=== PATIENT | male | born 1955 | race Caucasian/White ===

== ENCOUNTER → 2018-06-23 | Outpatient (CLI) | payer BC, OTHER | END | disposition home or self-care (01) | LOC: CARD 09:42 | PROVIDERS: ATTEND Family Medicine | DX: E78.5 Hyperlipidemia, unspecified (principal) | CPT/HCPCS: 93017 ==

== ENCOUNTER 2020-06-28 15:10 | Inpatient (IN) | payer OTHER ==
[~2020-06-28] VITALS: Ht 182.9 cm; Wt 97.5 kg
[2020-06-28 19:08] VITALS: BP 146/77
[2020-06-28 21:14] VITALS: BP 127/75
[2020-06-28] MEDS ORDERED: PHARMACY INSTRUCTION MC PRN (21:30)
[2020-06-28] MEDS ORDERED: LABETALOL 5MG/ML, 20ML IVPush PRN (21:30)
[2020-06-28] MEDS ORDERED: ACETAMINOPHEN 325 MG TABLET PO PRN (21:30)
[2020-06-28] MEDS ORDERED: ONDANSETRON 2MG/ML, 2ML IVPush PRN (21:30)
[2020-06-28] MEDS ORDERED: PLEASE ENTER HEIGHT AND WEIGHT MC SCH (22:00)
[2020-06-28] MEDS: MELATONIN 5 MG TABLET PO SCH (22:13)
[2020-06-28] MEDS: ASCORBIC ACID 500 MG TABLET PO SCH (22:13)
[2020-06-28] MEDS: AZITHROMYCIN 500 MG TABLET PO SCH (22:13)
[2020-06-28] MEDS: DEXAMETHASONE 4 MG/ML, 1ML IVPush SCH (22:19)
[2020-06-28] MEDS: CEFTRIAXONE PMX 2GM/50ML 50 ML IV SCH (22:27)
[2020-06-28] MEDS: REMDESIVIR 100 MG in SODIUM CHLORIDE 0.9% 250 ML IVPB SCH (23:07)
[2020-06-28] MEDS ORDERED: EZET10TA48 PO (23:15)
[2020-06-28] MEDS ORDERED: ROSU20TA29 PO (23:15)
[2020-06-28] MEDS: ENOXAPARIN 100 MG/ML SQ SCH (23:24)
[2020-06-29 00:28] VITALS: BP 114/68
[2020-06-29 06:18] LABS: BASOPHILS % (AUTO) 1 % (0-1); EOSINOPHILS % (AUTO) 0 % (1-7); LYMPHOCYTES % (AUTO) 9 % (22-44); MEAN CORPUSCULAR HEMOGLOBIN 31.7 pg (27.5-34.5); MEAN CORPUSCULAR HGB CONC 33.9 g/dL (33.2-36.2); MEAN PLATELET VOLUME 8.6 fL (7.4-10.4); MONOCYTES % (AUTO) 5 % (2-9); NEUTROPHILS % (AUTO) 85 % (42-75); PLATELET COUNT 330 x10^3/uL (130-400); RED BLOOD COUNT 4.04 x10^6/uL (4.38-5.82); RED CELL DISTRIBUTION WIDTH 13.3 % (9.4-14.8)
[2020-06-29 06:19] LABS: MD NO
[2020-06-29 06:32] LABS: CHLORIDE 112 mmol/L (98-107)
[2020-06-29 06:40] LABS: ALANINE AMINOTRANSFERASE 53 U/L (12-78); ALBUMIN 2.3 g/dL (3.4-5.0); ALKALINE PHOSPHATASE 58 U/L (45-117); ANION GAP 7 mmol/L (5-15); BILIRUBIN,TOTAL 0.2 mg/dL (0.2-1.0); CALCIUM 8.2 mg/dL (8.5-10.1); TOTAL PROTEIN 5.8 g/dL (6.4-8.2)
[2020-06-29] MEDS: ZINC SULFATE 220 MG CAPSULE PO SCH (08:05)
[2020-06-29] MEDS: CHOLECALCIFEROL 5,000u TAB PO SCH (08:05)
[2020-06-29] MEDS: ASCORBIC ACID 500 MG TABLET PO SCH ×2 (08:05→17:24)
[2020-06-29] MEDS: ENOXAPARIN 100 MG/ML SQ SCH ×2 (09:43→22:16)
[2020-06-29 13:34] VITALS: BP 104/67
[2020-06-29 19:44] VITALS: BP 126/77
[2020-06-29] MEDS: MELATONIN 5 MG TABLET PO SCH (22:04)
[2020-06-29] MEDS: AZITHROMYCIN 500 MG TABLET PO SCH (22:05)
[2020-06-29] MEDS: CEFTRIAXONE PMX 2GM/50ML 50 ML IV SCH (22:14)
[2020-06-29] MEDS: DEXAMETHASONE 4 MG/ML, 1ML IVPush SCH (22:14)
[2020-06-29] MEDS: REMDESIVIR 100 MG in SODIUM CHLORIDE 0.9% 250 ML IVPB SCH (23:28)
[2020-06-30 00:36] VITALS: BP 117/68
[2020-06-30 06:02] LABS: CALCIUM 8.1 mg/dL (8.5-10.1); CHLORIDE 112 mmol/L (98-107)
[2020-06-30 06:08] LABS: ALANINE AMINOTRANSFERASE 47 U/L (12-78); ALBUMIN 2.3 g/dL (3.4-5.0); ALKALINE PHOSPHATASE 64 U/L (45-117); ANION GAP 4 mmol/L (5-15); BILIRUBIN,TOTAL 0.2 mg/dL (0.2-1.0); CREATININE 0.99 mg/dL (0.7-1.3); TOTAL PROTEIN 5.8 g/dL (6.4-8.2)
[2020-06-30 06:50] VITALS: BP 120/67
[2020-06-30] MEDS: ASCORBIC ACID 500 MG TABLET PO SCH ×2 (07:55→16:36)
[2020-06-30] MEDS: CHOLECALCIFEROL 5,000u TAB PO SCH (07:55)
[2020-06-30] MEDS: ZINC SULFATE 220 MG CAPSULE PO SCH (07:55)
[2020-06-30] MEDS: ENOXAPARIN 100 MG/ML SQ SCH ×2 (10:19→21:46)
[2020-06-30 12:26] VITALS: BP 106/66
[2020-06-30 19:11] VITALS: BP 106/66
[2020-06-30] MEDS: CEFTRIAXONE PMX 2GM/50ML 50 ML IV SCH (21:45)
[2020-06-30] MEDS: MELATONIN 5 MG TABLET PO SCH (21:46)
[2020-06-30] MEDS: DEXAMETHASONE 4 MG/ML, 1ML IVPush SCH (21:46)
[2020-06-30] MEDS: AZITHROMYCIN 500 MG TABLET PO SCH (21:46)
[2020-06-30] MEDS: REMDESIVIR 100 MG in SODIUM CHLORIDE 0.9% 250 ML IVPB SCH (23:27)
[2020-07-01 00:25] VITALS: BP 120/86
[2020-07-01 07:12] VITALS: BP 109/64
[2020-07-01] MEDS: ZINC SULFATE 220 MG CAPSULE PO SCH (07:41)
[2020-07-01] MEDS: CHOLECALCIFEROL 5,000u TAB PO SCH (07:41)
[2020-07-01] MEDS: ASCORBIC ACID 500 MG TABLET PO SCH ×2 (07:41→16:36)
[2020-07-01] MEDS: ENOXAPARIN 100 MG/ML SQ SCH ×2 (10:05→22:28)
[2020-07-01 10:14] LABS: ALANINE AMINOTRANSFERASE 67 U/L (12-78); ALBUMIN 2.3 g/dL (3.4-5.0); ANION GAP 6 mmol/L (5-15); CALCIUM 8.3 mg/dL (8.5-10.1); CHLORIDE 108 mmol/L (98-107); CREATININE 0.86 mg/dL (0.7-1.3)
[2020-07-01 10:16] LABS: ALKALINE PHOSPHATASE 66 U/L (45-117); BILIRUBIN,TOTAL 0.3 mg/dL (0.2-1.0); TOTAL PROTEIN 5.9 g/dL (6.4-8.2)
[2020-07-01 12:59] VITALS: BP 126/69
[2020-07-01 18:48] VITALS: BP 134/73
[2020-07-01] MEDS: DEXAMETHASONE 4 MG/ML, 1ML IVPush SCH (22:27)
[2020-07-01] MEDS: AZITHROMYCIN 500 MG TABLET PO SCH (22:27)
[2020-07-01] MEDS: MELATONIN 5 MG TABLET PO SCH (22:27)
[2020-07-01] MEDS: CEFTRIAXONE PMX 2GM/50ML 50 ML IV SCH (22:28)
[2020-07-01] MEDS: REMDESIVIR 100 MG in SODIUM CHLORIDE 0.9% 250 ML IVPB SCH (23:21)
[2020-07-02 01:20] VITALS: BP 123/72
[2020-07-02 06:45] VITALS: BP 116/65
[2020-07-02] MEDS: ENOXAPARIN 100 MG/ML SQ SCH (09:21)
[2020-07-02] MEDS: CHOLECALCIFEROL 5,000u TAB PO SCH (09:21)
[2020-07-02] MEDS: ASCORBIC ACID 500 MG TABLET PO SCH ×2 (09:21→16:36)
[2020-07-02] MEDS: ZINC SULFATE 220 MG CAPSULE PO SCH (09:21)
[2020-07-02 13:06] VITALS: BP 118/66
[2020-07-02 21:13] VITALS: BP 133/76
[2020-07-02] MEDS: MELATONIN 5 MG TABLET PO SCH (21:13)
[2020-07-02] MEDS: AZITHROMYCIN 500 MG TABLET PO SCH (22:49)
[2020-07-02] MEDS: CEFTRIAXONE PMX 2GM/50ML 50 ML IV SCH (22:49)
[2020-07-02] MEDS: DEXAMETHASONE 4 MG/ML, 1ML IVPush SCH (22:49)
[2020-07-03 02:09] VITALS: BP 130/72
[2020-07-03 07:02] VITALS: BP 111/69
[2020-07-03] MEDS: ZINC SULFATE 220 MG CAPSULE PO SCH (08:46)
[2020-07-03] MEDS: ASCORBIC ACID 500 MG TABLET PO SCH ×2 (08:46→18:10)
[2020-07-03] MEDS: CHOLECALCIFEROL 5,000u TAB PO SCH (08:46)
[2020-07-03] MEDS: ENOXAPARIN 40 MG/0.4 ML SQ SCH (08:47)
[2020-07-03 12:40] VITALS: BP 111/66
[2020-07-03 18:58] VITALS: BP 115/65
[2020-07-03] MEDS: AZITHROMYCIN 500 MG TABLET PO SCH (22:31)
[2020-07-03] MEDS: DEXAMETHASONE 4 MG/ML, 1ML IVPush SCH (22:31)
[2020-07-03] MEDS: CEFTRIAXONE PMX 2GM/50ML 50 ML IV SCH (22:31)
[2020-07-03] MEDS: MELATONIN 5 MG TABLET PO SCH (22:31)
[2020-07-04 01:00] VITALS: BP 104/66
[2020-07-04 07:37] VITALS: BP 103/68
[2020-07-04] MEDS: CHOLECALCIFEROL 5,000u TAB PO SCH (08:24)
[2020-07-04] MEDS: ZINC SULFATE 220 MG CAPSULE PO SCH (08:24)
[2020-07-04] MEDS: ASCORBIC ACID 500 MG TABLET PO SCH (08:24)
[2020-07-04] MEDS: ENOXAPARIN 40 MG/0.4 ML SQ SCH (08:25)
[2020-07-04] MEDS ORDERED: CEFD300C37 PO (11:20)
[2020-07-04] MEDS ORDERED: ZINC220C8 PO (11:20)
[2020-07-04] MEDS ORDERED: DEXA6TAB6 PO (11:20)
[2020-07-04] MEDS ORDERED: ASCO500T9 PO (11:20)
[2020-07-04] MEDS ORDERED: AZIT500T10 PO (11:20)
[2020-07-04] MEDS ORDERED: MELA5TAB14 PO (11:20)
[2020-07-04] MEDS ORDERED: CHOL500045 PO (11:21)
[2020-07-04] MEDS ORDERED: ASPI-963 PO (11:22)
== END 2020-07-04 13:02 | disposition home or self-care (01) | DRG 177 ==
LOC: 3N 18:55
PROVIDERS: ADMIT Family Medicine; ATTEND Internal Medicine
PROC: XW033E5 Introduction of Remdesivir Anti-infective into Peripheral Vein, Percutaneous Approach, New Technology Group 5 (ICD-10-PCS; principal; 2020-06-28)
DX: U07.1 COVID-19 (principal); J12.82 Pneumonia due to coronavirus disease 2019; J96.01 Acute respiratory failure with hypoxia; E78.5 Hyperlipidemia, unspecified; Z85.820 Personal history of malignant melanoma of skin
CPT/HCPCS: 36415; 71045; 80053; 85025; G0378; J0696; J1100; J1650; J7050

== ENCOUNTER 2020-07-05 12:08 | Inpatient (IN) | payer OTHER ==
[~2020-07-05] VITALS: Ht 182.9 cm; Wt 95.0 kg
[~2020-07-05 12:08] MED LIST: ASCO500T9 PO; ASPI-963 PO; AZIT500T10 PO; CEFD300C37 PO; CHOL500045 PO; DEXA6TAB6 PO; EZET10TA48 PO; MELA5TAB14 PO; ROSU20TA29 PO; ZINC220C8 PO
--- NOTE | 2020-07-05 13:50 | NUR ---
plan iv/labs/chest tube/readmit. as
--- NOTE | 2020-07-05 13:55 | NUR ---
LATE ENTRY SUMMARY NOTE DUE TO PT CARE - PER REPORT PT DISCHARGED FROM THIS HOSPITAL ON 2-3L OF O2 YESTERDAY. PT WAS AT 83% ON INITIAL CONTACT ON 6L NC, PT CURRENTLY 90% ON 8L OXYMASK. REPORT CALLED TO MARIELLE IN IR FOR CHEST TUBE PLACEMENT. REPORT ALSO CALLED TO MICHAEL ROD. PT TO GO TO ROOM 363 AFTER CHEST TUBE. PIV PLACED AT THIS TIME. PT RESTING IN [place], MONITORING IN PLACE, NADN AT THIS TIME, PER PT NO PAIN AT THIS TIME, WCTM.
--- NOTE | 2020-07-05 13:57 | NUR ---
report to nimisha noble. as
--- NOTE | 2020-07-05 13:57 | NUR ---
ASSUMED CARE OF PT FROM MICHAEL RUSHING.
[2020-07-05 14:12] LABS: BASOPHILS % (AUTO) 0 % (0-1); EOSINOPHILS % (AUTO) 1 % (1-7); LYMPHOCYTES % (AUTO) 7 % (22-44); MEAN CORPUSCULAR HEMOGLOBIN 31.9 pg (27.5-34.5); MEAN CORPUSCULAR HGB CONC 33.3 g/dL (33.2-36.2); MEAN PLATELET VOLUME 7.7 fL (7.4-10.4); MONOCYTES % (AUTO) 4 % (2-9); NEUTROPHILS % (AUTO) 89 % (42-75); PLATELET COUNT 532 x10^3/uL (130-400); RED CELL DISTRIBUTION WIDTH 13.8 % (9.4-14.8)
[2020-07-05 14:25] LABS: ALANINE AMINOTRANSFERASE 73 U/L (12-78); ALBUMIN 2.6 g/dL (3.4-5.0); ANION GAP 6 mmol/L (5-15); CALCIUM 8.8 mg/dL (8.5-10.1); CHLORIDE 105 mmol/L (98-107); CREATININE 0.91 mg/dL (0.7-1.3)
[2020-07-05 14:27] LABS: ALKALINE PHOSPHATASE 89 U/L (45-117); BILIRUBIN,TOTAL 0.5 mg/dL (0.2-1.0)
[2020-07-05 14:45] LABS: MD SCAN
[2020-07-05] MEDS ORDERED: LIDOCAINE 1%, 10ML ONE (14:50)
[2020-07-05] MEDS ORDERED: KETOROLAC 30 MG/1 ML IV PRN (15:00)
[2020-07-05] MEDS ORDERED: ACETAMINOPHEN 325 MG TABLET PO PRN (15:00)
[2020-07-05] MEDS ORDERED: OXYcodone IR 5MG TABLET PO PRN (15:00)
[2020-07-05] MEDS ORDERED: morphine SULFATE 10 MG/ML, 1ML IVPush PRN (15:00)
[2020-07-05] MEDS ORDERED: ONDANSETRON ODT 4 MG PO PRN (15:00)
[2020-07-05] MEDS ORDERED: POLYETHYLENE GLYCOL 17 GM PACKET PO PRN (15:00)
--- NOTE | 2020-07-05 15:09 | NUR ---
IR AT BEDSIDE TO DO CHEST TUBE PLACEMENT. CONSENT SIGNED BY TWO RN'S WITH VERBAL CONSENT D/T COVID ISOLATION.
[2020-07-05] MEDS ORDERED: FENTANYL PF 100 MCG/2ML ONE (15:17)
[2020-07-05] MEDS ORDERED: FENTANYL PF 100 MCG/2ML IV ONE (15:30)
--- NOTE | 2020-07-05 15:33 | NUR ---
TASK RN: 50MCG GIVEN @ 0518 50MCG GIVEN @ 1530 PER VERBAL ORDER.
--- NOTE | 2020-07-05 15:34 | NUR ---
TASK RN: 10FR CHEST TUBE PLACED BY . PT TOLERATED PROCEDURE WELL. ADELA ZULUAGA.
[2020-07-05] MEDS ORDERED: FENTANYL PF 100 MCG/2ML IVPush ONE (16:00)
[2020-07-05 16:52] VITALS: BP 107/71
[2020-07-05] MEDS: ASCORBIC ACID 500 MG TABLET PO SCH (17:30)
[2020-07-05 19:19] VITALS: BP 120/62
[2020-07-05] MEDS: ATORVASTATIN 80 MG TABLET PO SCH (20:05)
[2020-07-05] MEDS: EZETIMIBE 10 MG TABLET PO SCH (20:05)
[2020-07-05] MEDS ORDERED: TRAZODONE 50MG TABLET PO PRN (21:00)
[2020-07-06 00:41] VITALS: BP 132/83
[2020-07-06 05:18] LABS: BASOPHILS % (AUTO) 0 % (0-1); EOSINOPHILS % (AUTO) 0 % (1-7); LYMPHOCYTES % (AUTO) 11 % (22-44); MEAN CORPUSCULAR HEMOGLOBIN 32.8 pg (27.5-34.5); MEAN CORPUSCULAR HGB CONC 34.5 g/dL (33.2-36.2); MEAN PLATELET VOLUME 7.9 fL (7.4-10.4); MONOCYTES % (AUTO) 9 % (2-9); NEUTROPHILS % (AUTO) 80 % (42-75); PLATELET COUNT 486 x10^3/uL (130-400); RED BLOOD COUNT 4.17 x10^6/uL (4.38-5.82); RED CELL DISTRIBUTION WIDTH 13.7 % (9.4-14.8)
[2020-07-06 05:32] LABS: ALBUMIN 2.4 g/dL (3.4-5.0); ANION GAP 4 mmol/L (5-15); CALCIUM 8.9 mg/dL (8.5-10.1); CHLORIDE 104 mmol/L (98-107)
[2020-07-06 05:37] LABS: ALANINE AMINOTRANSFERASE 54 U/L (12-78); ALKALINE PHOSPHATASE 75 U/L (45-117); BILIRUBIN,TOTAL 0.6 mg/dL (0.2-1.0); CREATININE 0.84 mg/dL (0.7-1.3); TOTAL PROTEIN 6.4 g/dL (6.4-8.2)
[2020-07-06 06:13] LABS: MD SCAN
[2020-07-06 07:56] VITALS: BP 135/84
[2020-07-06] MEDS: ASCORBIC ACID 500 MG TABLET PO SCH ×2 (09:33→18:09)
[2020-07-06] MEDS: ZINC SULFATE 220 MG CAPSULE PO SCH (09:33)
[2020-07-06] MEDS: SENNA/DOCUSATE TABLET PO SCH (09:34)
[2020-07-06] MEDS: DEXAMETHASONE 1 MG TABLET PO SCH (09:34)
[2020-07-06] MEDS: CHOLECALCIFEROL 5,000u TAB PO SCH (09:34)
[2020-07-06] MEDS: ASPIRIN 81 MG TABLET EC PO SCH (09:34)
[2020-07-06] MEDS: ENOXAPARIN 40 MG/0.4 ML SQ SCH (09:35)
[2020-07-06 12:15] VITALS: BP 124/76
[2020-07-06] MEDS: GUAIFENESIN ER 600 MG TABLET PO SCH (18:09)
[2020-07-06 18:30] VITALS: BP 131/80
[2020-07-06] MEDS: EZETIMIBE 10 MG TABLET PO SCH (20:34)
[2020-07-06] MEDS: ATORVASTATIN 80 MG TABLET PO SCH (20:34)
[2020-07-06] MEDS: MELATONIN 5 MG TABLET PO PRN (20:36)
[2020-07-07 00:21] VITALS: BP 120/77
[2020-07-07] MEDS: GUAIFENESIN ER 600 MG TABLET PO SCH ×3 (06:35→22:28)
[2020-07-07 07:54] VITALS: BP 107/69
[2020-07-07] MEDS: SENNA/DOCUSATE TABLET PO SCH (09:00)
[2020-07-07] MEDS: ENOXAPARIN 40 MG/0.4 ML SQ SCH (09:00)
[2020-07-07] MEDS: ZINC SULFATE 220 MG CAPSULE PO SCH (09:11)
[2020-07-07] MEDS: ASPIRIN 81 MG TABLET EC PO SCH (09:11)
[2020-07-07] MEDS: CHOLECALCIFEROL 5,000u TAB PO SCH (09:12)
[2020-07-07] MEDS: ASCORBIC ACID 500 MG TABLET PO SCH ×2 (09:12→18:16)
[2020-07-07] MEDS: DEXAMETHASONE 1 MG TABLET PO SCH (09:12)
[2020-07-07 13:15] VITALS: BP 110/76
[2020-07-07 19:38] VITALS: BP 112/69
[2020-07-07] MEDS: ATORVASTATIN 80 MG TABLET PO SCH (22:27)
[2020-07-07] MEDS: MELATONIN 5 MG TABLET PO PRN (22:28)
[2020-07-07] MEDS: EZETIMIBE 10 MG TABLET PO SCH (22:28)
[2020-07-08 00:47] VITALS: BP 118/74
[2020-07-08 07:48] VITALS: BP 119/74
[2020-07-08] MEDS: DEXAMETHASONE 1 MG TABLET PO SCH (08:34)
[2020-07-08] MEDS: ASCORBIC ACID 500 MG TABLET PO SCH ×2 (08:34→17:18)
[2020-07-08] MEDS: CHOLECALCIFEROL 5,000u TAB PO SCH (08:34)
[2020-07-08] MEDS: GUAIFENESIN ER 600 MG TABLET PO SCH ×2 (08:34→19:36)
[2020-07-08] MEDS: ZINC SULFATE 220 MG CAPSULE PO SCH (08:34)
[2020-07-08] MEDS: ASPIRIN 81 MG TABLET EC PO SCH (08:35)
[2020-07-08] MEDS: SENNA/DOCUSATE TABLET PO SCH (08:35)
[2020-07-08] MEDS: ENOXAPARIN 40 MG/0.4 ML SQ SCH (08:36)
[2020-07-08 13:10] VITALS: BP 113/72
[2020-07-08 18:49] VITALS: BP 115/69
[2020-07-08] MEDS: ATORVASTATIN 80 MG TABLET PO SCH (19:35)
[2020-07-08] MEDS: EZETIMIBE 10 MG TABLET PO SCH (19:35)
[2020-07-08] MEDS: MELATONIN 5 MG TABLET PO PRN (19:36)
[2020-07-09 00:19] VITALS: BP 111/66
[2020-07-09 05:24] LABS: ALBUMIN 2.4 g/dL (3.4-5.0); ANION GAP 4 mmol/L (5-15); BASOPHILS % (AUTO) 1 % (0-1); CALCIUM 8.2 mg/dL (8.5-10.1); CHLORIDE 106 mmol/L (98-107); EOSINOPHILS % (AUTO) 1 % (1-7); LYMPHOCYTES % (AUTO) 14 % (22-44); MEAN CORPUSCULAR HEMOGLOBIN 32.2 pg (27.5-34.5); MEAN CORPUSCULAR HGB CONC 33.8 g/dL (33.2-36.2); MEAN PLATELET VOLUME 8.2 fL (7.4-10.4); MONOCYTES % (AUTO) 9 % (2-9); NEUTROPHILS % (AUTO) 75 % (42-75); PLATELET COUNT 406 x10^3/uL (130-400); RED BLOOD COUNT 4.05 x10^6/uL (4.38-5.82); RED CELL DISTRIBUTION WIDTH 13.5 % (9.4-14.8)
[2020-07-09 05:28] LABS: MD NO
[2020-07-09 05:30] LABS: ALANINE AMINOTRANSFERASE 47 U/L (12-78); ALKALINE PHOSPHATASE 79 U/L (45-117); BILIRUBIN,TOTAL 0.4 mg/dL (0.2-1.0); CREATININE 0.84 mg/dL (0.7-1.3); TOTAL PROTEIN 6.1 g/dL (6.4-8.2)
[2020-07-09 06:51] VITALS: BP 108/66
[2020-07-09] MEDS: ASCORBIC ACID 500 MG TABLET PO SCH ×2 (08:17→16:57)
[2020-07-09] MEDS: CHOLECALCIFEROL 5,000u TAB PO SCH (08:18)
[2020-07-09] MEDS: ZINC SULFATE 220 MG CAPSULE PO SCH (08:18)
[2020-07-09] MEDS: DEXAMETHASONE 1 MG TABLET PO SCH (08:18)
[2020-07-09] MEDS: ASPIRIN 81 MG TABLET EC PO SCH (08:18)
[2020-07-09] MEDS: GUAIFENESIN ER 600 MG TABLET PO SCH ×2 (08:18→20:10)
[2020-07-09] MEDS: SENNA/DOCUSATE TABLET PO SCH (08:18)
[2020-07-09] MEDS: ENOXAPARIN 40 MG/0.4 ML SQ SCH (08:19)
[2020-07-09 13:00] VITALS: BP 119/69
[2020-07-09 18:50] VITALS: BP 111/68
[2020-07-09] MEDS: EZETIMIBE 10 MG TABLET PO SCH (20:10)
[2020-07-09] MEDS: MELATONIN 5 MG TABLET PO PRN (20:10)
[2020-07-09] MEDS: ATORVASTATIN 80 MG TABLET PO SCH (20:10)
[2020-07-10 02:39] VITALS: BP 113/71
[2020-07-10 08:22] VITALS: BP 109/72
[2020-07-10] MEDS ORDERED: DEXAMETHASONE 4 MG TABLET ONE (08:31)
[2020-07-10] MEDS: ASCORBIC ACID 500 MG TABLET PO SCH ×2 (08:34→17:26)
[2020-07-10] MEDS: CHOLECALCIFEROL 5,000u TAB PO SCH (08:34)
[2020-07-10] MEDS: ASPIRIN 81 MG TABLET EC PO SCH (08:34)
[2020-07-10] MEDS: ZINC SULFATE 220 MG CAPSULE PO SCH (08:34)
[2020-07-10] MEDS: GUAIFENESIN ER 600 MG TABLET PO SCH ×2 (08:34→21:22)
[2020-07-10] MEDS: THIAMINE 100MG TABLET PO SCH (08:34)
[2020-07-10] MEDS: DEXAMETHASONE 1 MG TABLET PO SCH (08:36)
[2020-07-10] MEDS: SENNA/DOCUSATE TABLET PO SCH (08:37)
[2020-07-10] MEDS: ENOXAPARIN 40 MG/0.4 ML SQ SCH (08:37)
[2020-07-10 13:46] VITALS: BP 114/70
[2020-07-10 20:22] VITALS: BP 131/73
[2020-07-10] MEDS: ATORVASTATIN 80 MG TABLET PO SCH (21:22)
[2020-07-10] MEDS: EZETIMIBE 10 MG TABLET PO SCH (21:22)
[2020-07-10] MEDS: MELATONIN 5 MG TABLET PO PRN (21:22)
[2020-07-11 01:26] VITALS: BP 119/73
[2020-07-11 06:23] LABS: BASOPHILS % (AUTO) 0 % (0-1); EOSINOPHILS % (AUTO) 1 % (1-7); LYMPHOCYTES % (AUTO) 13 % (22-44); MEAN CORPUSCULAR HEMOGLOBIN 31.9 pg (27.5-34.5); MEAN PLATELET VOLUME 8.5 fL (7.4-10.4); MONOCYTES % (AUTO) 8 % (2-9); NEUTROPHILS % (AUTO) 77 % (42-75); PLATELET COUNT 316 x10^3/uL (130-400); RED BLOOD COUNT 3.93 x10^6/uL (4.38-5.82); RED CELL DISTRIBUTION WIDTH 13.8 % (9.4-14.8)
[2020-07-11 06:29] LABS: CHLORIDE 108 mmol/L (98-107)
[2020-07-11 06:33] LABS: ANION GAP 4 mmol/L (5-15); CALCIUM 8.2 mg/dL (8.5-10.1); CREATININE 0.81 mg/dL (0.7-1.3)
[2020-07-11 06:45] VITALS: BP 130/80
[2020-07-11 06:56] LABS: MD SCAN
[2020-07-11] MEDS: DEXAMETHASONE 1 MG TABLET PO SCH (08:21)
[2020-07-11] MEDS: ASCORBIC ACID 500 MG TABLET PO SCH ×2 (08:21→17:10)
[2020-07-11] MEDS: ZINC SULFATE 220 MG CAPSULE PO SCH (08:22)
[2020-07-11] MEDS: THIAMINE 100MG TABLET PO SCH (08:22)
[2020-07-11] MEDS: CHOLECALCIFEROL 5,000u TAB PO SCH (08:22)
[2020-07-11] MEDS: SENNA/DOCUSATE TABLET PO SCH (08:22)
[2020-07-11] MEDS: ENOXAPARIN 40 MG/0.4 ML SQ SCH (08:22)
[2020-07-11] MEDS: GUAIFENESIN ER 600 MG TABLET PO SCH ×2 (08:22→20:24)
[2020-07-11] MEDS: ASPIRIN 81 MG TABLET EC PO SCH (08:22)
[2020-07-11 13:28] VITALS: BP 115/84
[2020-07-11 18:50] VITALS: BP 116/69
[2020-07-11] MEDS: ATORVASTATIN 80 MG TABLET PO SCH (20:23)
[2020-07-11] MEDS: MELATONIN 5 MG TABLET PO PRN (20:24)
[2020-07-11] MEDS: EZETIMIBE 10 MG TABLET PO SCH (20:24)
[2020-07-12 00:15] VITALS: BP 129/71
[2020-07-12 05:36] LABS: MEAN CORPUSCULAR HEMOGLOBIN 32.7 pg (27.5-34.5); MEAN CORPUSCULAR HGB CONC 34.1 g/dL (33.2-36.2); MEAN PLATELET VOLUME 7.9 fL (7.4-10.4); PLATELET COUNT 297 x10^3/uL (130-400); RED BLOOD COUNT 3.86 x10^6/uL (4.38-5.82); RED CELL DISTRIBUTION WIDTH 13.9 % (9.4-14.8)
[2020-07-12 05:47] LABS: CHLORIDE 110 mmol/L (98-107)
[2020-07-12 05:51] LABS: ANION GAP 5 mmol/L (5-15); CALCIUM 8.1 mg/dL (8.5-10.1); CREATININE 0.76 mg/dL (0.7-1.3)
[2020-07-12 06:25] LABS: MD YES
[2020-07-12 06:27] LABS: <PLATELET ESTIMATE> ADEQUATE; <PLT MORPHOLOGY> NORMAL PLT MORPH; <RBC MORPHOLOGY> NORMAL; EOS#(MANUAL) 0.12 x10^3/uL (0.0-0.4); EOS% (MANUAL) 1 % (1-7); LYMPHS% (MANUAL) 13 % (22-44); METAMYELOCYTES# (MANUAL) 0.12 x10^3/uL (0-0); METAMYELOCYTES% (MANUAL) 1 % (0-1); MONOS#(MANUAL) 0.98 x10^3/uL (0.3-2.7); MONOS% (MANUAL) 8 % (2-9); SEG#(MANUAL) 9.47 x10^3/uL (1.8-6.8); SEGS% (MANUAL) 77 % (42-75)
[2020-07-12 06:50] VITALS: BP 124/69
[2020-07-12] MEDS: ASCORBIC ACID 500 MG TABLET PO SCH ×2 (08:18→18:05)
[2020-07-12] MEDS: GUAIFENESIN ER 600 MG TABLET PO SCH ×2 (08:18→19:43)
[2020-07-12] MEDS: ZINC SULFATE 220 MG CAPSULE PO SCH (08:18)
[2020-07-12] MEDS: CHOLECALCIFEROL 5,000u TAB PO SCH (08:19)
[2020-07-12] MEDS: ASPIRIN 81 MG TABLET EC PO SCH (08:19)
[2020-07-12] MEDS: SENNA/DOCUSATE TABLET PO SCH (08:20)
[2020-07-12] MEDS: ENOXAPARIN 40 MG/0.4 ML SQ SCH (08:21)
[2020-07-12] MEDS: THIAMINE 100MG TABLET PO SCH (08:21)
[2020-07-12] MEDS ORDERED: DEXAMETHASONE 4 MG TABLET PO SCH (09:00)
[2020-07-12] MEDS ORDERED: OMNIPAQUE 350 MG/ML, 100ML BOTTLE ONE (12:27)
[2020-07-12 13:49] VITALS: BP 108/65
[2020-07-12 18:31] VITALS: BP 121/68
[2020-07-12] MEDS: EZETIMIBE 10 MG TABLET PO SCH (19:43)
[2020-07-12] MEDS: ATORVASTATIN 80 MG TABLET PO SCH (19:43)
[2020-07-12] MEDS: MELATONIN 5 MG TABLET PO PRN (19:43)
[2020-07-13 02:10] VITALS: BP 117/67
[2020-07-13 05:56] LABS: MEAN CORPUSCULAR HEMOGLOBIN 32.4 pg (27.5-34.5); MEAN CORPUSCULAR HGB CONC 33.6 g/dL (33.2-36.2); MEAN PLATELET VOLUME 8.3 fL (7.4-10.4); PLATELET COUNT 291 x10^3/uL (130-400); RED BLOOD COUNT 4.07 x10^6/uL (4.38-5.82); RED CELL DISTRIBUTION WIDTH 13.9 % (9.4-14.8)
[2020-07-13 06:24] LABS: ANION GAP 5 mmol/L (5-15); CALCIUM 8.1 mg/dL (8.5-10.1); CHLORIDE 110 mmol/L (98-107); CREATININE 0.78 mg/dL (0.7-1.3)
[2020-07-13 06:49] VITALS: BP 126/78
[2020-07-13 07:12] LABS: MD YES
[2020-07-13 07:15] LABS: <PLATELET ESTIMATE> ADEQUATE; <PLT MORPHOLOGY> NORMAL PLT MORPH; <RBC MORPHOLOGY> NORMAL; LYMPH#(MANUAL) 2.05 x10^3/uL (1-3.4); LYMPHS% (MANUAL) 19 % (22-44); METAMYELOCYTES# (MANUAL) 0.11 x10^3/uL (0-0); METAMYELOCYTES% (MANUAL) 1 % (0-1); MONOS#(MANUAL) 0.32 x10^3/uL (0.3-2.7); MONOS% (MANUAL) 3 % (2-9); SEG#(MANUAL) 8.32 x10^3/uL (1.8-6.8); SEGS% (MANUAL) 77 % (42-75)
[2020-07-13] MEDS: ZINC SULFATE 220 MG CAPSULE PO SCH (08:19)
[2020-07-13] MEDS: ASPIRIN 81 MG TABLET EC PO SCH (08:19)
[2020-07-13] MEDS: THIAMINE 100MG TABLET PO SCH (08:19)
[2020-07-13] MEDS: ASCORBIC ACID 500 MG TABLET PO SCH ×2 (08:19→17:32)
[2020-07-13] MEDS: GUAIFENESIN ER 600 MG TABLET PO SCH ×2 (08:19→20:21)
[2020-07-13] MEDS: SENNA/DOCUSATE TABLET PO SCH (08:20)
[2020-07-13] MEDS: DEXAMETHASONE 4 MG TABLET PO SCH (08:23)
[2020-07-13] MEDS: CHOLECALCIFEROL 5,000u TAB PO SCH (08:24)
[2020-07-13] MEDS: ENOXAPARIN 40 MG/0.4 ML SQ SCH (08:24)
[2020-07-13 12:18] VITALS: BP 105/68
[2020-07-13 18:57] VITALS: BP 129/71
[2020-07-13] MEDS: ATORVASTATIN 80 MG TABLET PO SCH (20:21)
[2020-07-13] MEDS: EZETIMIBE 10 MG TABLET PO SCH (20:21)
[2020-07-14 01:20] VITALS: BP 130/77
[2020-07-14 06:26] VITALS: BP 119/74
[2020-07-14 06:32] VITALS: BP 146/83
[2020-07-14] MEDS: ENOXAPARIN 40 MG/0.4 ML SQ SCH (08:13)
[2020-07-14] MEDS: SENNA/DOCUSATE TABLET PO SCH (08:15)
[2020-07-14] MEDS: THIAMINE 100MG TABLET PO SCH (08:15)
[2020-07-14] MEDS: ASPIRIN 81 MG TABLET EC PO SCH (08:15)
[2020-07-14] MEDS: ASCORBIC ACID 500 MG TABLET PO SCH ×2 (08:16→16:57)
[2020-07-14] MEDS: CHOLECALCIFEROL 5,000u TAB PO SCH (08:16)
[2020-07-14] MEDS: GUAIFENESIN ER 600 MG TABLET PO SCH ×2 (08:17→20:18)
[2020-07-14] MEDS: ZINC SULFATE 220 MG CAPSULE PO SCH (08:17)
[2020-07-14] MEDS: DEXAMETHASONE 4 MG TABLET PO SCH (08:17)
[2020-07-14 13:57] VITALS: BP 121/71
[2020-07-14] MEDS: ATORVASTATIN 80 MG TABLET PO SCH (20:17)
[2020-07-14] MEDS: EZETIMIBE 10 MG TABLET PO SCH (20:17)
[2020-07-14 20:42] VITALS: BP 133/73
[2020-07-15 00:20] VITALS: BP 136/67
[2020-07-15] MEDS: ENOXAPARIN 40 MG/0.4 ML SQ SCH (08:14)
[2020-07-15] MEDS: ASPIRIN 81 MG TABLET EC PO SCH (08:15)
[2020-07-15] MEDS: ASCORBIC ACID 500 MG TABLET PO SCH (08:15)
[2020-07-15] MEDS: GUAIFENESIN ER 600 MG TABLET PO SCH (08:16)
[2020-07-15] MEDS: ZINC SULFATE 220 MG CAPSULE PO SCH (08:16)
[2020-07-15] MEDS: THIAMINE 100MG TABLET PO SCH (08:16)
[2020-07-15] MEDS: DEXAMETHASONE 4 MG TABLET PO SCH (08:17)
[2020-07-15] MEDS: CHOLECALCIFEROL 5,000u TAB PO SCH (08:20)
[2020-07-15 08:22] VITALS: BP 122/75
[2020-07-15] MEDS: SENNA/DOCUSATE TABLET PO SCH (08:27)
[2020-07-15 13:39] VITALS: BP 136/76
== END 2020-07-15 14:23 | disposition home or self-care (01) | DRG 199 ==
LOC: ED 13:35 → 3N 14:20
PROVIDERS: ADMIT Internal Medicine; ATTEND Internal Medicine
PROC: 0W9B30Z Drainage of Left Pleural Cavity with Drainage Device, Percutaneous Approach (ICD-10-PCS; principal; 2020-07-05)
DX: J93.83 Other pneumothorax (principal); J96.01 Acute respiratory failure with hypoxia; E88.09 Other disorders of plasma-protein metabolism, not elsewhere classified; D63.8 Anemia in other chronic diseases classified elsewhere; E78.5 Hyperlipidemia, unspecified; Z85.828 Personal history of other malignant neoplasm of skin; R79.89 Other specified abnormal findings of blood chemistry; Z86.16 Personal history of COVID-19; Z87.01 Personal history of pneumonia (recurrent); D72.829 Elevated white blood cell count, unspecified
CPT/HCPCS: 32557; 36415; 84145; 99285; J3490; 71045; 71275; 80048; 80053; 85025; 93005; G0378; J1650; J3010; Q9967; C1729; C1769

== ENCOUNTER → 2020-08-24 | Outpatient (CLI) | payer OTHER | END | disposition home or self-care (01) | LOC: CFH 11:55 | PROVIDERS: ATTEND Nurse Practitioner Family | DX: U07.1 COVID-19 (principal); J18.9 Pneumonia, unspecified organism | CPT/HCPCS: 71250 ==